=== PATIENT | female | born 1985 | race Caucasian/White ===

== ENCOUNTER 2024-07-02 13:48 | Outpatient (CLI) | payer OTHER, SELFPAY ==
--- NOTE | ~2024-07-02 | MR_ITS ---
MR breast BI wo/w con 07/02/2024 15:05 CDT INDICATION: High risk for breast cancer TECHNIQUE: MRI of the breasts perform using standard protocol pre-and post IV contrast with the follo wing sequences: Axial T2 STIR, axial T1, axial vibrant T1 with fat suppression precontrast and multip hasic postcontrast. 15 cc MultiHance administered intravenously. COMPARISON: No prior studies for comparison. FINDINGS: There are no abnormalities on the precontrast sequences. There is mild background parenchym al enhancement. No enhancing lesions following contrast administration. No areas of enhancement rufina ting threshold criteria on CAD analysis. No evidence of signal abnormalities in the axillary or inte rnal mammary node distributions. LEFT BREAST: No signal abnormalities on precontrast sequences. There is mild background parenchymal enhancement. No enhancing lesions following contrast administration. No areas of enhancement meeti ng threshold criteria on CAD analysis. No evidence of signal abnormalities in the axillary or inter nal mammary node distributions.] IMPRESSION: 1: Right breast: Negative. No evidence of malignancy. BI-RADS category 1. Recommend annual mammo graphy follow-up. 2: Left breast: Negative. No evidence of malignancy. BI-RADS category 1. Recommend annual mammogr aphy follow-up. Reviewed, dictated and finalized at location A. IMPRESSION: 1: Right breast: Negative. No evidence of malignancy. BI-RADS category 1. Recommend annual mammography follow-up. 2: Left breast: Negative. No evidence of malignancy. BI-RADS category 1. Re commend annual mammography follow-up.
--- OUTSIDE RECORDS SUMMARY | 2024-07-02 14:28 | XMS_ITS | Continuity of Care Document ---
Author Organization [facility] Address [address] [place] [address] Phone Care Team Providers Care Die Fitter Name Role Phone Paige GREWAL, Rene Unavailable Unavailable Procedures Procedure Date Dermabrasion Cosmetic Advance Directives Directive Yes / No Effective Date File Name No Information Encounters Encounter Description Practice Location Reason(s) For Visit Diagnoses Date Provider Providers Copied on Encounter [facility], [address] [facility], [place], [place], [id number], tel:[phone] [address] [place] [address] No Information Paige López. [address] [facility], [place], [place], [id number] , . tel: [phone] Referring Provider: Karuna Bunn, [address], [address] . tel:[phone] Family History Family Member Type Diagnosis Age At Onset No Information Payers Payer name Insurance type Covered democrat ID Authoriza tion(s) No Information Social History Type Description Quantity Date Captured Comments Sex Female Smoking Status No Information Chief Complaint And Reason For Visit No Information Reason For Referral Reason For Referral No Information History Of Present Illness Encounter Date Complaint History Of Prese nt Illness No Information Functional Status Date Functional Assessmen t No Information Instructions Date Instruction Additional Infor mation No Information Assessments Type Assessment Date No Information Patient Care Teams Name Effective Dates (start - stop) Status Members No Information
== END 2024-07-02 13:49 | disposition home or self-care (01) ==
DX: Z12.39 Encounter for other screening for malignant neoplasm of breast (principal); Z80.3 Family history of malignant neoplasm of breast
CPT/HCPCS: 77049; A9577; C8908